=== PATIENT | female | born 1960 | race Caucasian/White ===

== ENCOUNTER → 2020-10-01 | Outpatient (CLI) | payer OTHER ==
[~2020-10-01] MED LIST: ALBUTEROL2.5 MG/31 INH; ALLERGY-TIME4 MG PO; APAP W/CODEINE1 TA2 PO; AVAPRO75 MG PO; BOSWELLIA SERRAT1 GM PO; CALCIUM + VITA1 EACH PO; CALCIUM ANTACI200 MG PO; CRANBERRY200 MG PO; DICLOFENAC SODI75 MG PO; ESTRACE42.5 GM VAG; FISH OIL 1,0001 EAC9 PO; FLONASE 0.05%50 MCG NASAL; GAS-X125 MG PO; GINKGO BILOBA30 MG PO; GINSENG250 MG PO; GLUCOSAMINE HC500 M1 PO; GLUTATHIONE PO; MESTINON60 MG PO; MIRALAX17 GM PO; MUCINEX600 MG PO; PREVACID15 MG PO; ROBAXIN 750 MG750 MG PO; SINGULAIR 10 MG10 MG PO; ST. JOHN'S WOR300 MG PO; VENTOLIN HFA 1818 GM INH; VITAMIN B-12100 MC1 PO; VITAMIN D3125 MC2 PO; VITAMIN E100 UNI1 PO; WIXELA 100-501 EACH INH; ZETIA10 MG PO; [UNRECOGNIZED DRUG - OTHER] PO
== END ==
LOC: LAB 07:44
PROVIDERS: ATTEND Surgery
DX: Z01.812 Encounter for preprocedural laboratory examination (principal); Z20.822 Contact with and (suspected) exposure to COVID-19

== ENCOUNTER 2020-10-05 06:07 | Day surgery (SDC) | payer OTHER, BC ==
[~2020-10-05] VITALS: Ht 165.1 cm; Wt 98.4 kg
--- NOTE | ~2020-10-05 | O ---
[facility] [place] [address] OPERATIVE REPORT Name: ERIN ANDERSON Room #: 150-2 [facility]..#: [id number] Admission: 10/05/20 Attend Phys: Ham Alas MD Discharge: Date of : 60 Report #: [id number] THIS REPORT FOR: cc: Andrey Mina MD, Elliott L. MD Franey,Ham Horta MD ~ DATE OF SERVICE: 10/05/[address] Ham Alas, Dr. Andrey Mina. PREOPERATIVE DIAGNOSIS: Incarcerated umbilical hernia. POSTOPERATIVE DIAGNOSIS: Incarcerated umbilical hernia. PROCEDURE: Repair of an incarcerated umbilical hernia. SURGEON: Dr. Ham Alas. ANESTHESIA: Local IV sedation. DESCRIPTION OF PROCEDURE: The patient was brought to the operating room and placed on operative table in the supine position. Sequential compression devices were in place for DVT prophylaxis. There was no indication for preoperative antibiotics. The patient underwent IV sedation. The abdomen was then prepped and draped in a sterile fashion. Skin and subcutaneous tissue around the umbilicus was infiltrated with 0.5% Marcaine and 1% Xylocaine with epinephrine. A transverse supraumbilical skin incision was then performed using #15 scalpel blade. Hemostasis obtained using electrocautery. Dissection was carried down through the subcutaneous tissue to some incarcerated preperitoneal fat. This was dissected free and then reduced back through the hernia defect into the preperitoneal space. I then placed a finger through the fascial defect and felt all around. There were no other fascial defects in the area. The fascial defect hernia was then closed easily with an interrupted [id number] and simple #1 Prolene sutures. Deep and superficial subcutaneous tissue was then reapproximated using simple interrupted 2-0 chromic sutures and the skin then closed with a running 4-0 subcuticular Vicryl stitch. The wound was then dressed with Dermabond, Telfa, 4 x 4 gauze, sponge and tape. The patient was then taken to the recovery room awake, alert and in good condition. Estimated blood loss was approximately 5 mL and the patient tolerated the procedure well. All sponge, lap and instrument counts correct x2. By: [id number] Ham Alas MD /nt
[2020-10-05 06:40] VITALS: BP 126/65
--- NOTE | 2020-10-05 07:16 | EKG ---
[place] [address] [facility] [place] [address] ELECTROCARDIOGRAM REPORT Name: ERIN ANDERSON Room #: 150-2 [facility]#: [id number] Admission: 10/05/20 Attend Phys: Ham Alas MD Discharge: Date of : 60 Report #: [id number] [facility] Test Date: 2020-10-05 Test Time: 06:56:51 Pat Name: ERIN ANDERSON Department: Room: 150 2 Gender: F [employer]ractor Trailer Mechanic: JACK : 1960 Requested By: Ham Alas Order Number: [id number] : Braulio Maria Measurements Intervals [place] Rate: 75 P: 55 [place]: 161 QRS: -23 QRSD: 100 T: 63 QT: 392 QTc: 438 Interpretive Statements Sinus rhythm Probable left atrial enlargement Borderline left axis deviation Abnormal R-wave progression, early transition No previous ECG available for comparison Electronically Signed On 10-05-2020 7:16:36 CDT by Braulio Maria [email or web address] <ELECTRONICALLY SIGNED> By: Braulio Maria MD, [facility] 10/05/20 0716 [id number] 06 Braulio Maria MD, FACC /EPI
[2020-10-05] MEDS ORDERED: HYDROCODON-ACE1 EAC7 PO (07:28)
== END 2020-10-05 09:15 | disposition home or self-care (01) ==
LOC: OR 06:07 → TBA 06:07 → OR 09:15
PROVIDERS: ATTEND Surgery
DX: K42.0 Umbilical hernia with obstruction, without gangrene (principal); I10 Essential (primary) hypertension; E78.00 Pure hypercholesterolemia, unspecified; M79.7 Fibromyalgia; J45.909 Unspecified asthma, uncomplicated; F32.9 Major depressive disorder, single episode, unspecified; F41.9 Anxiety disorder, unspecified; K21.9 Gastro-esophageal reflux disease without esophagitis; Z98.890 Other specified postprocedural states; Z79.899 Other long term (current) drug therapy; Z90.710 Acquired absence of both cervix and uterus; Z87.442 Personal history of urinary calculi; Z91.040 Latex allergy status
CPT/HCPCS: 50010; 50101; 50386; 50417; 54118; 56524; 56525; 56526; 62110; 62850; 70005